=== PATIENT | female | born 2000 | race Caucasian/White ===

== ENCOUNTER 2021-03-30 20:12 | Emergency (ER) | payer OTHER ==
[~2021-03-30] VITALS: Wt 62.1 kg
[2021-03-30] MEDS ORDERED: NAPROXEN250 MG PO (20:57)
== END 2021-03-30 21:09 | disposition home or self-care (01) ==
LOC: ED 20:12
DX: S90.32XA Contusion of left foot, initial encounter (principal); Z88.0 Allergy status to penicillin; Z91.040 Latex allergy status; W19.XXXA Unspecified fall, initial encounter; Y93.89 Activity, other specified; Y92.89 Other specified places as the place of occurrence of the external cause; Y99.8 Other external cause status